=== PATIENT | female | born 1945 | race Caucasian/White ===

== ENCOUNTER 2022-02-13 16:21 | Inpatient (IN) ==
--- NOTE | 2022-02-13 16:59 | Internal Med History&Physical ---
HPI History of Present Illness Patient information: Note initiated : 02/13/22 at 4:52 pm Service Date, if different from initiated Date: [] Patient: Namrata Araiza 76 y/o F admitted on for Hip fracture. Chief Complaint: [Fall with hip fracture] Chief complaint: fall with hip fracture History of present illness: Ms. Araiza is a 76 year old F otherwise healthy lady, presenting with fall with right hip fracture. Patient was ambulating in the car park and she slipped on the ice next to her car and fell landed on her right hip. She denies any loss of consciousness and the fall was accidental. She denies any chest pain or palpitations. She denies any shortness of breath. She denies any head injury. She denies any headaches. She denies any confusion or lethargy after the accident. She was being brought to outside ED where imaging shows a right intertrochanteric hip fracture. They called orthopedic surgeon Dr. Cruz who accepted the case, and would like me to admit the patient for planned surgery tomorrow. Constitutional Constitutional: Absent chills, excessive sweating, fatigue, fever(s) or weakness EENT Eyes: Absent blurry vision, change in vision, loss of vision or other visual disturbances Ears: Absent decreased hearing or tinnitus Nose, mouth and throat: Absent abnormal hearing, dry mouth, headache(s), nasal congestion or sore throat Cardiovascular Cardiovascular: Absent chest pain, chest pain at rest, edema, irregular heart rhythm or palpatations Respiratory Respiratory: Absent cough, dyspnea or wheezing Gastrointestinal Gastrointestinal: Absent abdominal pain, constipation, diarrhea, nausea or vomiting Musculoskeletal Musculoskeletal: Absent back pain, deformity, limited range of motion, muscle cramps, muscle weakness or numbness Additional comments: Right hip pain Integumentary Integumentary: Absent lesions, rash or wounds Neurological Neurological: Absent focal weakness, headache(s) or numbness Psychiatric Psychiatric: Absent anxiety, depression or hallucinations PFSH PFSH All Active Problems (Updated 02/13/22 @ 16:56 by Morris Singh MD) Closed right hip fracture (Acute) EXAM Constitutional General appearance: cooperative and no acute distress Head Head exam: Present atraumatic and normocephalic Eye Eye exam: Present EOMI and PERRL ENT ENT exam: Present mucous membranes moist, normal exam and normal external ear exam Neck Neck exam: Present normal inspection; Absent lymphadenopathy, tenderness or thyromegaly Respiratory Respiratory exam: Absent accessory muscle use, respiratory distress or wheezes Cardiovascular Cardiovascular exam: Present normal rate and rhythm; Absent JVD GI/Abdominal GI/Abdominal exam: Present normal bowel sounds and soft; Absent organomegaly or tenderness Extremities Exam Extremities exam: Present normal capillary refill and tenderness; Absent full ROM or normal inspection Additional comments: Right lateral hip active and passive ROMs limited by pain Neurological Exam Neurological exam: Present alert, CN II-XII intact and oriented X3; Absent motor sensory deficit Psychiatric Psychiatric exam: Present normal affect and normal mood; Absent anxious or depressed Skin Skin exam: Present dry and intact A/P Assessment and plan (1) Closed right hip fracture: Status: Acute Narrative A/P Narrative: Assessment and Plans: 1. Right intertrochanteric femur fracture: Inpatient med surg Consult orthopedic surgeon Dr. Cruz for surgical management Regular diet, NPO after midnight with IV fluid NS@100cc/hr Bedrest Tylenol PRN mild pain Oxycodone PRN moderate pain Dilaudid IV PRN severe pain Robaxin PRN muscle spasm Physical therapy AFTER surgery ct manager for placement planning GI ppx: not currently indicated DVT ppx: SCDs Code status: Full Prognosis: stable Disposition: inpatient med surg; PT Time Spent With Patient Time: Total time spent is greater than 50% in coordination of care (as documented) at patient's floor/unit and/or counseling patient: Total time spent with greater than 50% in coordination of care (as documented) at patient's floor/unit and/or counseling patient:: 50 - 70 minutes
[2022-02-13] MEDS ORDERED: IPRATROPIUM/ALBUTEROL 3 ML AMPUL.NEB NEB PRN (18:34)
[2022-02-13] MEDS ORDERED: METHOCARBAMOL 500 MG TABLET PO PRN (18:34)
[2022-02-13] MEDS ORDERED: HYDROmorphone 0.5 MG/0.5 ML SYRINGE IV PRN (18:34)
[2022-02-13] MEDS ORDERED: traZODone HCL 50 MG TABLET PO PRN (18:34)
[2022-02-13] MEDS ORDERED: oxyCODONE HCL 5 MG TABLET PO PRN (18:34)
[2022-02-13] MEDS: DOCUSATE SODIUM 100 MG CAPSULE PO SCH (19:06)
[2022-02-13] MEDS: 0.9 % SODIUM CHLORIDE 1,000 ML IV SCH (19:06)
[2022-02-13] MEDS: ONDANSETRON 4 MG/2 ML VIAL IV PRN (19:06)
[2022-02-13] MEDS ORDERED: morphine 2 MG/ML VIAL IV PRN (20:32)
[2022-02-13] MEDS: 0.9 % SODIUM CHLORIDE 10 ML SYRINGE IV SCH (20:44)
[2022-02-13] MEDS ORDERED: SENNOSIDES 1 TABLET PO SCH (21:00)
[2022-02-13] MEDS: METHOCARBAMOL 1,000 MG/10 ML VIAL IV PRN (21:02)
--- NOTE | 2022-02-13 22:27 | History and Physical Report ---
DATE OF ADMISSION: 02/13/2022 IDENTIFICATION: Ms. Araiza is a 76-year-old female. CHIEF COMPLAINT: Left hip fracture. HISTORY OF PRESENT ILLNESS: Ms. Ott had a fall on the ice. She had immediate pain, was unable to bear weight. She presented to the hospital in [place] where radiographs demonstrated femoral neck fracture. She is now transferred for further evaluation and management. PAST MEDICAL HISTORY: Fairly unremarkable. PAST SURGICAL HISTORY: Also, noncontributory. MEDICATIONS: See medical record. ALLERGIES: CODEINE PRODUCES NAUSEA, PENICILLINS. PHYSICAL EXAMINATION: GENERAL: She is awake and alert. She responds appropriately. HEAD: Normocephalic, atraumatic. EYES: PERRLA. Conjunctiva clear. ENT: Within normal limits. NECK: Supple without pain on range of motion. HEART: Regular. LUNGS: Clear. MUSCULOSKELETAL: Right hip is carefully positioned and she does get spasming waves of pain. She seemed to be grossly without neurovascular deficit. IMAGING: Radiographs demonstrate a fracture involving the intertrochanteric region of the hip with the lesser trochanter being fractured off. IMPRESSION: Right hip fracture. PLAN: We will proceed with a reduction and internal fixation using an intramedullary hip screw. The procedure risks, complications, limitations were reviewed. She understands these well and wishes to proceed. [email or web address] Job ID: [id number] Doc ID: [id number] Kiran Cruz MD
[2022-02-14] MEDS ORDERED: morphine 10 MG/ML VIAL IV PRN (00:49)
[2022-02-14] MEDS ORDERED: morphine 4 MG/ML VIAL ONE ×2 (00:56→05:29)
[2022-02-14] MEDS: morphine 4 MG/ML VIAL IV PRN ×3 (01:01→11:55)
[2022-02-14] MEDS: ONDANSETRON 4 MG/2 ML VIAL IV PRN ×2 (01:02→11:55)
[2022-02-14] MEDS: METHOCARBAMOL 1,000 MG/10 ML VIAL IV PRN ×2 (03:07→22:52)
[2022-02-14] MEDS: 0.9 % SODIUM CHLORIDE 10 ML SYRINGE IV SCH ×3 (04:48→22:58)
[2022-02-14] MEDS: 0.9 % SODIUM CHLORIDE 1,000 ML IV SCH ×2 (05:17→16:10)
[2022-02-14 06:39] LABS: Basophils # (Auto) 0.02 K/mcL (0.00-0.30); Basophils % (Auto) 0.2 % (0.0-2.0); Eosinophils # (Auto) 0 K/mcL (0.00-0.70); Eosinophils % (Auto) 0 % (0.0-7.0); Hematocrit 34.2 % (34.1-44.9); Hemoglobin 11.5 g/dL (11.2-15.7); Lymphocytes # (Auto) 2.22 K/mcL (1.50-4.80); Lymphocytes % (Auto) 21.4 % (15.5-49.0); Mean Cell Volume 96.6 fL (80.0-100.0); Mean Corpuscular HGB Conc 33.6 g/dL (31.0-36.0); Mean Platelet Volume 10.3 fL (8.8-12.5); Monocytes # (Auto) 0.96 K/mcL (0.10-0.90); Monocytes % (Auto) 9.2 % (1.0-12.0); Neutrophils % (Auto) 68.9 % (38.0-78.0); Platelet Count 192 K/mcL (140-440); RBC 3.54 M/mcL (3.59-5.38); Red Cell Distribution Width 13.6 % (11.5-14.5); WBC 10.4 K/mcL (4.5-11.0)
[2022-02-14 07:02] LABS: ALT/SGPT 9 U/L (<40); AST/SGOT 13 U/L (<32); Albumin 3.2 gm/dL (3.2-5.2); Albumin/Globulin Ratio 1.5 (1.0-2.3); Alkaline Phosphatase 55 U/L (39-117); Bilirubin,Total 0.2 mg/dL (0.1-1.0); Blood Urea Nitrogen 7 mg/dL (8-23); Calcium 7.8 mg/dL (8.6-10.4); Carbon Dioxide 25 mmol/L (22-30); Chloride 105 mmol/L (96-108); Globulin 2.2 gm/dL (2.2-3.7); Glomerular Filtration Rate 87; Glucose 116 mg/dL (70-105)
[2022-02-14] MEDS: DOCUSATE SODIUM 100 MG CAPSULE PO SCH ×2 (09:23→22:58)
--- NOTE | 2022-02-14 09:25 | Internal Med Progress Note ---
SUBJECTIVE Subjective Patient information: Note initiated : 02/14/22 at 9:23 am Service Date, if different from initiated Date: [] Patient: Namrata Araiza 76 y/o F admitted on 02/13/22 for Hip fracture. Chief Complaint: [] Interval history: Ms. Araiza is a 76 year old F otherwise healthy lady, presenting with fall with right hip fracture. Patient was ambulating in the car park and she slipped on the ice next to her car and fell landed on her right hip. She denies any loss of consciousness and the fall was accidental. She denies any chest pain or palpitations. She denies any shortness of breath. She denies any head injury. She denies any headaches. She denies any confusion or lethargy after the accident. She was being brought to outside ED where imaging shows a right intertrochanteric hip fracture. They called orthopedic surgeon Dr. Cruz who accepted the case, and would like me to admit the patient for planned surgery t omorrow. 02/14: Patient is complaining of right lower extremity muscle spasm all the way from hip to toe. She is also commenting of nausea but denies any vomiting. Pending surgery schedule at noon today. Continue narcotics and muscle relaxant as needed for symptoms control meanwhile. Physical therapy evaluation and treatments after the surgery. Constitutional Vitals: Vital Signs Temp Pulse Resp BP Pulse Ox O2 Del Method 36.5 C 89 14 91/65 97 02/14/22 07:09 02/14/22 07:09 02/14/22 07:09 02/14/22 07:09 02/14/22 07:09 02/14/22 07:09 Period Temp Pulse Resp BP Sys/Avalos Pulse Ox O2 Del Method O2 Flow Rate Last 24 Hr 36.5 C-37.0 C 85-89 14-20 91-120/57-65 92-97 Room Air-Room Air Intake and Output 02/13/22 02/14/22 02/14/22 19:59 03:59 11:59 Intake Total 1400 Balance 1400 Weight 49.895 kg Intake & Output: Intake & Output 02/13/22 02/14/22 02/14/22 19:59 03:59 11:59 Intake Total 1400 Balance 1400 Weight 49.895 kg Intake: IV 1000 Sodium Chloride 0.9% 1,000 ml @ 1000 100 mls/hr IV .Q10H [facility] Rx#: [id number] Oral 400 Other: Urine Appearance Clear Uretheral ([facility]) Clear Urine Color Yellow Uretheral ([facility]) Yellow # Voids 350 Head Head exam: Present atraumatic and normal inspection Eye Eye exam: Present normal appearance ENT ENT exam: Present mucous membranes moist, normal exam and normal external ear exam Neck Neck exam: Present normal inspection Respiratory Respiratory exam: Present normal respiratory exam Cardiovascular Cardiovascular exam: Present normal rate and rhythm GI/Abdominal GI/Abdominal exam: Present normal bowel sounds Extremities Exam Extremities exam: Present tenderness; Absent full ROM or normal inspection Additional comments: Right lower extremity active and passive ROMs limited by pain Back Exam Back exam: Present normal inspection Neurological Exam Neurological exam: Present alert and oriented X3 Skin Skin exam: Present intact and warm OBJ DATA Labs CBC & Chem 7: 02/14/22 05:35 02/14/22 05:35 Labs: Abnormal Lab Results 02/14/22 02/14/22 05:35 05:35 RBC 3.54 L Jess[place] # (Auto) 0.96 H Anion Gap 7.0 L BUN 7 L Glucose 116 H Calcium 7.8 L Total Protein 5.4 L Meds: Medications Acetaminophen (Acetaminophen 325 Mg Tablet) 650 mg PO Q6HP PRN; Protocol PRN Reason: Per Pain Protocol/Fever > 101 Albuterol/Ipratropium (Ipratropium/Albuterol 3 Ml Ampul.Neb) 3 ml NEB Q4HRT PRN PRN Reason: Wheezing Docusate Sodium (Docusate Sodium 100 Mg Capsule) 100 mg PO BID [facility] Last Admin: 02/14/22 09:23 Dose: Not Given Sodium Chloride (Sodium Chloride 0.9%) 1,000 mls @ 100 mls/hr IV .Q10H [facility] Last Admin: 02/14/22 05:17 Dose: 100 mls/hr Methocarbamol (Methocarbamol 1,000 Mg/10 Ml Vial) 750 mg IV Q6HP PRN PRN Reason: Muscle Spasm Last Admin: 02/14/22 03:07 Dose: 750 mg Morphine Sulfate (Morphine 2 Mg/Ml Vial) 2 mg IV Q2HP PRN; Protocol PRN Reason: Per Pain Protocol Morphine Sulfate (Morphine 4 Mg/Ml Vial) 4 mg IV Q2HP PRN; Protocol PRN Reason: pain level 6-8 Last Admin: 02/14/22 05:31 Dose: 4 mg Morphine Sulfate (Morphine 10 Mg/Ml Vial) 6 mg IV Q4HP PRN; Protocol PRN Reason: pain level 8-10 Ondansetron HCl (Ondansetron 4 Mg/2 Ml Vial) 4 mg IV Q6HP PRN PRN Reason: Nausea And Vomiting Last Admin: 02/14/22 01:02 Dose: 4 mg Oxycodone HCl (Oxycodone Hcl 5 Mg Tablet) 5 mg PO Q4HP PRN; Protocol PRN Reason: Per Pain Protocol Scopolamine (Scopolamine 1 Patch Patch) 1 patch TOPICAL PREOP PRN PRN Reason: Nausea And Vomiting Stop: 02/14/22 23:59 Senna (Sennosides 1 Tablet) 2 tab PO HS [facility] Last Admin: 02/13/22 19:07 Dose: Not Given Sodium Chloride (0.9 % Sodium Chloride 10 Ml Syringe) 10 ml IV Q8 [facility] Last Admin: 02/14/22 04:48 Dose: Not Given Trazodone HCl (Trazodone Hcl 50 Mg Tablet) 25 mg PO HSP PRN PRN Reason: Insomnia A/P Assessment and plan (1) Closed right hip fracture: Status: Acute Narrative A/P Narrative: Assessment and Plans: 1. Right intertrochanteric femur fracture: Inpatient med surg Consult orthopedic surgeon Dr. Cruz for surgical management Regular diet, NPO after midnight with IV fluid NS@100cc/hr Bedrest Tylenol PRN mild pain Oxycodone PRN moderate pain Dilaudid IV PRN severe pain Robaxin PRN muscle spasm Physical therapy AFTER surgery regional business manager for placement planning GI ppx: not currently indicated DVT ppx: SCDs Code status: Full Prognosis: stable Disposition: inpatient med surg; PT Time Spent With Patient Time: Total time spent is greater than 50% in coordination of care (as documented) at patient's floor/unit and/or counseling patient: Total time spent with greater than 50% in coordination of care (as documented) at patient's floor/unit and/or counseling patient:: 25 - 35 minutes QUALITY VTE Deep Vein Thrombosis/Pulmonary Embolism Present on Admission: No
[2022-02-14] MEDS ORDERED: SCOPOLAMINE 1 PATCH PATCH TOPICAL PRN (12:00)
[2022-02-14] MEDS ORDERED: ceFAZolin 2 GM in DEXTROSE 5% IN WATER 50 ML IV SCH (13:15)
[2022-02-14] MEDS ORDERED: HYDROmorphone 1 MG/ML SYRINGE ONE (13:52)
[2022-02-14] MEDS ORDERED: TRANEXAMIC ACID 1,000 MG/10 ML VIAL ONE (13:52)
[2022-02-14] MEDS ORDERED: MAGNESIUM SULFATE 2 GM/50 ML BAG IV ONE (13:52)
[2022-02-14] MEDS ORDERED: DEXAMETHASONE 10 MG/ML VIAL ONE (13:52)
[2022-02-14] MEDS ORDERED: PROPOFOL 200 MG/20 ML VIAL IV ONE (13:52)
[2022-02-14] MEDS ORDERED: FAMOTIDINE/PF 20 MG/2 ML VIAL IV ONE (13:52)
[2022-02-14] MEDS ORDERED: ONDANSETRON 4 MG/2 ML VIAL ONE (13:52)
[2022-02-14] MEDS ORDERED: fentaNYL 100 MCG/2 ML VIAL IV ONE (13:52)
[2022-02-14] MEDS ORDERED: KETAMINE 50 MG/ML Syringe (ANEST) IV ONE (13:52)
[2022-02-14] MEDS ORDERED: PHENYLephrine 1 MG/10 ML SYRINGE (ANEST) ONE (13:52)
[2022-02-14] MEDS ORDERED: LACTATED RINGERS 250 ML IV PRN (14:16)
[2022-02-14] MEDS ORDERED: ONDANSETRON 4 MG/2 ML VIAL IV PRN (14:16)
[2022-02-14] MEDS ORDERED: PROMETHAZINE 25 MG/ML VIAL IV PRN (14:16)
[2022-02-14] MEDS ORDERED: LABETALOL 5 MG/ML ML IV PRN (14:16)
[2022-02-14] MEDS ORDERED: NALOXONE HCL 0.4 MG/ML VIAL IV PRN (14:16)
[2022-02-14] MEDS ORDERED: IPRATROPIUM/ALBUTEROL 3 ML AMPUL.NEB NEB PRN (14:16)
[2022-02-14] MEDS ORDERED: ACETAMINOPHEN 1,000 MG/100 ML BAG IV ONE (14:16)
[2022-02-14] MEDS ORDERED: METOPROLOL TARTRATE 5 MG/5 ML VIAL IV PRN (14:16)
[2022-02-14] MEDS ORDERED: METHOCARBAMOL 1,000 MG/10 ML VIAL IV PRN (14:16)
[2022-02-14] MEDS ORDERED: LACTATED RINGERS 1,000 ML IV SCH (14:30)
--- NOTE | 2022-02-14 15:31 | XRay Report ---
INDICATION: right hip nailing TECHNIQUE: Intraoperative fluoroscopy and spot films utilized by Dr. Cruz. 0.9 minutes fluoroscopy and 5.34 mGy exposure used. Open reduction and internal fixation of a right intertrochanteric hip fracture performed. IMPRESSION: Intraoperative fluoroscopy and spot films Interpreted and Authenticated by: Jose Olguin 02/14/22
--- NOTE | 2022-02-14 15:38 | Brief Operative Note ---
Brief Operative Note Date of procedure: 02/14/22 Pre-op diagnosis: hip fracture right Post-op diagnosis: same Procedure: orif Grafts/Implants: Yes Anesthesia: GETA Findings: stable fixation Complications: none Surgeon: Kiran Cruz [employer] Attendant: César Alexis Estimated blood loss (cc): 200 Specimens Removed/Pathology: none sent Disposition: PACU
[2022-02-14] MEDS ORDERED: MAGNESIUM HYDROXIDE 30 ML ORAL.SUSP PO PRN (15:39)
[2022-02-14] MEDS ORDERED: POLYETHYLENE GLYCOL 3350 17 GM PACKET PO PRN (15:39)
[2022-02-14] MEDS ORDERED: BISACODYL 10 MG SUPP.RECT PR PRN (15:39)
[2022-02-14] MEDS ORDERED: HYDROCODONE/APAP 7.5/325MG TABLET PO PRN (15:39)
[2022-02-14] MEDS ORDERED: FLEETS ADULT ENEMA PR PRN (15:39)
[2022-02-14] MEDS: fentaNYL 100 MCG/2 ML VIAL IV PRN ×2 (16:04→16:09)
[2022-02-14] MEDS ORDERED: morphine 4 MG/ML VIAL IV ONE (16:22)
[2022-02-14] MEDS ORDERED: morphine 2 MG/ML VIAL ONE (16:32)
[2022-02-14] MEDS ORDERED: ASPIRIN 325 MG ENTERIC COATED TABLET PO SCH (21:00)
[2022-02-14] MEDS: ceFAZolin 1 GM VIAL IV SCH (22:52)
[2022-02-14] MEDS: ACETAMINOPHEN 325 MG TABLET PO PRN (22:52)
[2022-02-14] MEDS: SENNOSIDES 1 TABLET PO SCH (22:58)
[2022-02-15] MEDS ORDERED: IBUPROFEN 600 MG TABLET PO ONE (00:02)
[2022-02-15] MEDS: IBUPROFEN 600 MG TABLET PO PRN ×4 (00:07→21:56)
[2022-02-15] MEDS: ceFAZolin 1 GM VIAL IV SCH (05:41)
[2022-02-15] MEDS: 0.9 % SODIUM CHLORIDE 10 ML SYRINGE IV SCH ×3 (05:41→20:16)
[2022-02-15] MEDS: METHOCARBAMOL 1,000 MG/10 ML VIAL IV PRN (05:41)
[2022-02-15] MEDS: morphine 4 MG/ML VIAL IV PRN (05:54)
[2022-02-15 07:23] LABS: Hematocrit 26.7 % (34.1-44.9)
[2022-02-15 07:31] LABS: Basophils # (Auto) 0.01 K/mcL (0.00-0.30); Basophils % (Auto) 0.1 % (0.0-2.0); Eosinophils # (Auto) 0 K/mcL (0.00-0.70); Eosinophils % (Auto) 0 % (0.0-7.0); Hematocrit 27.1 % (34.1-44.9); Hemoglobin 8.8 g/dL (11.2-15.7); Lymphocytes # (Auto) 2.15 K/mcL (1.50-4.80); Lymphocytes % (Auto) 21.4 % (15.5-49.0); Mean Cell Volume 94.8 fL (80.0-100.0); Mean Corpuscular HGB Conc 32.5 g/dL (31.0-36.0); Mean Platelet Volume 10.7 fL (8.8-12.5); Monocytes # (Auto) 1.09 K/mcL (0.10-0.90); Monocytes % (Auto) 10.9 % (1.0-12.0); Neutrophils % (Auto) 67.1 % (38.0-78.0); Platelet Count 163 K/mcL (140-440); RBC 2.86 M/mcL (3.59-5.38); Red Cell Distribution Width 13.5 % (11.5-14.5)
[2022-02-15 07:53] LABS: ALT/SGPT 7 U/L (<40); AST/SGOT 15 U/L (<32); Albumin 2.7 gm/dL (3.2-5.2); Albumin/Globulin Ratio 1.4 (1.0-2.3); Alkaline Phosphatase 50 U/L (39-117); Bilirubin,Total 0.2 mg/dL (0.1-1.0); Blood Urea Nitrogen 9 mg/dL (8-23); Calcium 7.5 mg/dL (8.6-10.4); Carbon Dioxide 27 mmol/L (22-30); Chloride 101 mmol/L (96-108); Glomerular Filtration Rate 87; Glucose 102 mg/dL (70-105)
[2022-02-15] MEDS: DOCUSATE SODIUM 100 MG CAPSULE PO SCH ×2 (08:45→21:47)
[2022-02-15] MEDS: ACETAMINOPHEN 325 MG TABLET PO PRN ×2 (08:46→14:47)
[2022-02-15] MEDS: ASPIRIN 81 MG TAB.CHEW PO SCH ×2 (09:44→21:47)
--- NOTE | 2022-02-15 10:16 | General Surgery Progress Note ---
SUBJECTIVE Subjective Patient information: Note initiated : 02/15/22 at 10:15 am Service Date, if different from initiated Date: [] Patient: Namrata Araiza 76 y/o F admitted on 02/13/22 for Hip fracture. Chief Complaint: [] Principal diagnosis: hip fracture Constitutional Vitals: Vital Signs Temp Pulse Resp BP Pulse Ox O2 Del Method O2 Flow Rate 98.1 F 81 18 98/51 96 1 02/15/22 06:00 02/15/22 06:00 02/15/22 06:00 02/15/22 06:00 02/15/22 06:00 02/15/22 06:00 02/15/22 00:00 Period Temp Pulse Resp BP Sys/Avalos Pulse Ox O2 Del Method O2 Flow Rate Last 24 Hr 97 F-99.1 F 64-98 10-27 98-181/49-97 87-100 Nasal Cannula- Simple Mask 1-6 Intake and Output 02/14/22 02/15/22 02/15/22 19:59 03:59 11:59 Intake Total 3550 1200 Output Total 700 1000 550 Balance 2850 -1000 650 Weight 110 lb 3.2 oz Intake & Output: Intake & Output 02/14/22 02/15/22 02/15/22 19:59 03:59 11:59 Intake Total 3550 1200 Output Total 700 1000 550 Balance 2850 -1000 650 Weight 110 lb 3.2 oz Intake: IV 1150 Sodium Chloride 0.9% 1,000 ml @ 1000 100 mls/hr IV .Q10H [facility] Rx#: [id number] Ancef 2 gm In Dextrose 5% in 50 Water 50 ml @ 100 mls/hr IV PREOP [facility] Rx#:[id number] Oral 1200 IV - Manual Only 2400 Output: Urine Catheter Amount 600 1000 550 Estimated Blood Loss 100 Other: Urine Appearance Clear Clear Clear Uretheral ([facility]) Clear Urine Color Yellow Yellow Yellow Uretheral ([facility]) Pale # Bowel Movements 0 Additional findings Additional findings: neuro intact A/P Assessment and plan (1) Closed right hip fracture: Status: Acute Time Spent With Patient Time: Total time spent is greater than 50% in coordination of care (as documented) at patient's floor/unit and/or counseling patient:
--- NOTE | 2022-02-15 10:17 | General Surgery Progress Note ---
SUBJECTIVE Subjective Patient information: Note initiated : 02/15/22 at 10:16 am Service Date, if different from initiated Date: [] Patient: Namrata Araiza 76 y/o F admitted on 02/13/22 for Hip fracture. Chief Complaint: [] Principal diagnosis: hip fracture Constitutional Vitals: Vital Signs Temp Pulse Resp BP Pulse Ox O2 Del Method O2 Flow Rate 98.1 F 81 18 98/51 96 1 02/15/22 06:00 02/15/22 06:00 02/15/22 06:00 02/15/22 06:00 02/15/22 06:00 02/15/22 06:00 02/15/22 00:00 Period Temp Pulse Resp BP Sys/Avalos Pulse Ox O2 Del Method O2 Flow Rate Last 24 Hr 97 F-99.1 F 64-98 10-27 98-181/49-97 87-100 Nasal Cannula- Simple Mask 1-6 Intake and Output 02/14/22 02/15/22 02/15/22 19:59 03:59 11:59 Intake Total 3550 1200 Output Total 700 1000 550 Balance 2850 -1000 650 Weight 110 lb 3.2 oz Intake & Output: Intake & Output 02/14/22 02/15/22 02/15/22 19:59 03:59 11:59 Intake Total 3550 1200 Output Total 700 1000 550 Balance 2850 -1000 650 Weight 110 lb 3.2 oz Intake: IV 1150 Sodium Chloride 0.9% 1,000 ml @ 1000 100 mls/hr IV .Q10H [facility] Rx#: [id number] Ancef 2 gm In Dextrose 5% in 50 Water 50 ml @ 100 mls/hr IV PREOP [facility] Rx#:[id number] Oral 1200 IV - Manual Only 2400 Output: Urine Catheter Amount 600 1000 550 Estimated Blood Loss 100 Other: Urine Appearance Clear Clear Clear Uretheral ([facility]) Clear Urine Color Yellow Yellow Yellow Uretheral ([facility]) Pale # Bowel Movements 0 A/P Narrative A/P Narrative: post hip orif Plan of Treatment: dc plannng Time Spent With Patient Time: Total time spent is greater than 50% in coordination of care (as documented) at patient's floor/unit and/or counseling patient:
--- NOTE | 2022-02-15 10:53 | Internal Med Progress Note ---
SUBJECTIVE Subjective Patient information: Note initiated : 02/15/22 at 10:47 am Service Date, if different from initiated Date: [] Patient: Namrata Araiza 76 y/o F admitted on 02/13/22 for Hip fracture. Chief Complaint: [] Principal diagnosis: hip fracture Interval history: Ms. Araiza is a 76 year old F otherwise healthy lady, presenting with fall with right hip fracture. Patient was ambulating in the car park and she slipped on the ice next to her car and fell landed on her right hip. She denies any loss of consciousness and the fall was accidental. She denies any chest pain or palpitations. She denies any shortness of breath. She denies any head injury. She denies any headaches. She denies any confusion or lethargy after the accident. She was being brought to outside ED where imaging shows a right intertrochanteric hip fracture. They called orthopedic surgeon Dr. Cruz who accepted the case, and would like me to admit the patient for planned surgery tomorrow. 02/14: Patient is complaining of right lower extremity muscle spasm all the way from hip to toe. She is also commenting of nausea but denies any vomiting. Pending surgery schedule at noon today. Continue narcotics and muscle relaxant as needed for symptoms control meanwhile. Physical therapy evaluation and treatments after the surgery. 02/15: s/p ORIF by Dr. Cruz on 02/14/22. Patient tolerated the procedure well. Hem oglobin 11.5-->8.8. Patient is complaining of muscle spasm of the right hip. Been passing gas but has not had a bowel movement yet. She did have physical therapy session with earlier this morning. Continue narcotics and muscle relaxant as needed for symptoms control. Continue physical therapy session. Continue Aspirin 81mg PO BID as DVT ppx. Rest of post- operative care as per Dr. Cruz. Constitutional Vitals: Vital Signs Temp Pulse Resp BP Pulse Ox O2 Del Method O2 Flow Rate 36.8 C 80 18 110/70 96 1 02/15/22 08:00 02/15/22 08:00 02/15/22 08:00 02/15/22 08:00 02/15/22 08:00 02/15/22 08:00 02/15/22 00:00 Period Temp Pulse Resp BP Sys/Avalos Pulse Ox O2 Del Method O2 Flow Rate Last 24 Hr 36.1 C-37.3 C 64-98 8- 98-181/49-97 87-100 Nasal Cannula- Simple Mask 1-6 Intake and Output 02/14/22 02/15/22 02/15/22 19:59 03:59 11:59 Intake Total 3550 1200 Output Total 700 1000 550 Balance 2850 -1000 650 Weight 49.986 kg Intake & Output: Intake & Output 02/14/22 02/15/22 02/15/22 19:59 03:59 11:59 Intake Total 3550 1200 Output Total 700 1000 550 Balance 2850 -1000 650 Weight 49.986 kg Intake: IV 1150 Sodium Chloride 0.9% 1,000 ml @ 1000 100 mls/hr IV .Q10H [facility] Rx#: [id number] Ancef 2 gm In Dextrose 5% in 50 Water 50 ml @ 100 mls/hr IV PREOP [facility] Rx#:[id number] Oral 1200 IV - Manual Only 2400 Output: Urine Catheter Amount 600 1000 550 Estimated Blood Loss 100 Other: Urine Appearance Clear Clear Clear Uretheral ([facility]) Clear Urine Color Yellow Yellow Yellow Uretheral ([facility]) Pale # Bowel Movements 0 General appearance: average body habitus, cooperative and no acute distress Head Head exam: Present atraumatic and normal inspection Eye Eye exam: Present normal appearance ENT ENT exam: Present mucous membranes moist, normal exam and normal external ear exam Neck Neck exam: Present normal inspection Respiratory Respiratory exam: Present normal respiratory exam Cardiovascular Cardiovascular exam: Present normal rate and rhythm GI/Abdominal GI/Abdominal exam: Present normal bowel sounds Extremities Exam Extremities exam: Present tenderness; Absent full ROM or normal inspection Additional comments: Right lateral hip covered by surgical dressing Back Exam Back exam: Present normal inspection Neurological Exam Neurological exam: Present alert and oriented X3 Skin Skin exam: Present intact and warm OBJ DATA Labs CBC & Chem 7: 02/15/22 05:30 02/15/22 05:30 Labs: Abnormal Lab Results 02/15/22 02/15/22 02/15/22 05:30 05:30 05:29 RBC 2.86 L Hgb 8.8 L 9.0 L Hct 27.1 L 26.7 L Hanson # (Auto) 1.09 H Anion Gap 5.0 L BUN Glucose Calcium 7.5 L Total Protein 4.7 L Albumin 2.7 L Globulin 2.0 L 02/14/22 02/14/22 05:35 05:35 RBC 3.54 L Hgb Hct Hanson # (Auto) 0.96 H Anion Gap 7.0 L BUN 7 L Glucose 116 H Calcium 7.8 L Total Protein 5.4 L Albumin Globulin Meds: Medications Acetaminophen (Acetaminophen 325 Mg Tablet) 650 mg PO Q6HP PRN; Protocol PRN Reason: Per Pain Protocol/Fever > 101 Last Admin: 02/15/22 08:46 Dose: 650 mg Hydrocodone Bitart/Acetaminophen (Hydrocodone/Apap 7.5/325mg Tablet) 0 tab PO Q4HP PRN; Protocol PRN Reason: Per Pain Protocol Albuterol/Ipratropium (Ipratropium/Albuterol 3 Ml Ampul.Neb) 3 ml NEB Q4HRT PRN PRN Reason: Wheezing Aspirin (Aspirin 81 Mg Tab.Chew) 81 mg PO BID [facility] Last Admin: 02/15/22 09:44 Dose: 81 mg Bisacodyl (Bisacodyl 10 Mg Supp.Rect) 10 mg MO Q2-3DAYS PRN PRN Reason: Constipation Cyclobenzaprine HCl (Cyclobenzaprine 10 Mg Tablet) 10 mg PO TIDP PRN PRN Reason: Muscle Spasm Docusate Sodium (Docusate Sodium 100 Mg Capsule) 100 mg PO BID [facility] Last Admin: 02/15/22 08:45 Dose: 100 mg Ibuprofen (Ibuprofen 600 Mg Tablet) 600 mg PO QIDP PRN; Protocol PRN Reason: PAIN/FEVER > 101 Last Admin: 02/15/22 08:45 Dose: 600 mg Magnesium Hydroxide (Magnesium Hydroxide 30 Ml Oral.Susp) 30 ml PO BIDP PRN PRN Reason: Constipation Morphine Sulfate (Morphine 2 Mg/Ml Vial) 2 mg IV Q2HP PRN; Protocol PRN Reason: Per Pain Protocol Morphine Sulfate (Morphine 4 Mg/Ml Vial) 4 mg IV Q2HP PRN; Protocol PRN Reason: pain level 6-8 Last Admin: 02/15/22 05:54 Dose: 4 mg Morphine Sulfate (Morphine 10 Mg/Ml Vial) 6 mg IV Q4HP PRN; Protocol PRN Reason: pain level 8-10 Ondansetron HCl (Ondansetron 4 Mg/2 Ml Vial) 4 mg IV Q6HP PRN PRN Reason: Nausea And Vomiting Last Admin: 02/14/22 11:55 Dose: 4 mg Oxycodone HCl (Oxycodone Hcl 5 Mg Tablet) 5 mg PO Q4HP PRN; Protocol PRN Reason: Per Pain Protocol Polyethylene Glycol (Polyethylene Glycol 3350 17 Gm Packet) 17 gm PO DAILYP PRN PRN Reason: Constipation Senna (Sennosides 1 Tablet) 2 tab PO HS [facility] Last Admin: 02/14/22 22:58 Dose: Not Given Sodium Biphosphate/Sodium Phosphate (Fleets Adult Enema) 1 dose MO Q3-4DAYS PRN PRN Reason: Constipation Sodium Chloride (0.9 % Sodium Chloride 10 Ml Syringe) 10 ml IV Q8 [facility] Last Admin: 02/15/22 05:41 Dose: 10 ml Trazodone HCl (Trazodone Hcl 50 Mg Tablet) 25 mg PO HSP PRN PRN Reason: Insomnia A/P Assessment and plan (1) Closed right hip fracture: Status: Acute (2) Postoperative anemia: Status: Acute Narrative A/P Narrative: Assessment and Plans: 1. Right intertrochanteric femur fracture: Inpatient med surg s/p ORIF by Dr. Cruz on 02/14/22, patient tolerated the procedure well Tylenol PRN mild pain Oxycodone PRN moderate pain Dilaudid IV PRN severe pain Flexeril PRN muscle spasm Aspirin 81mg PO BID as DVT ppx Physical therapy evaluation and treatment health safety and environment manager for placement planning 2. Post surgical anemia: cbc w/ auto diff in the morning to trend H/H, transfuse if active bleeding, Hemoglobin<7.0, or if patient becomes symptomatic GI ppx: not currently indicated DVT ppx: SCDs; Aspirin 81mg PO BID Code status: Full Prognosis: stable Disposition: inpatient med surg; PT Plan of Treatment: dc plannng Time Spent With Patient Time: Total time spent is greater than 50% in coordination of care (as documented) at patient's floor/unit and/or counseling patient: Total time spent with greater than 50% in coordination of care (as documented) at patient's floor/unit and/or counseling patient:: 25 - 35 minutes QUALITY VTE Deep Vein Thrombosis/Pulmonary Embolism Present on Admission: No
[2022-02-15] MEDS: CYCLOBENZAPRINE 10 MG TABLET PO PRN ×2 (11:55→21:47)
[2022-02-15] MEDS: SENNOSIDES 1 TABLET PO SCH (21:48)
[2022-02-16] MEDS: ACETAMINOPHEN 325 MG TABLET PO PRN (03:18)
[2022-02-16] MEDS: 0.9 % SODIUM CHLORIDE 10 ML SYRINGE IV SCH (05:46)
[2022-02-16] MEDS: CYCLOBENZAPRINE 10 MG TABLET PO PRN (07:11)
[2022-02-16] MEDS: IBUPROFEN 600 MG TABLET PO PRN (07:11)
[2022-02-16 07:12] LABS: Basophils # (Auto) 0.03 K/mcL (0.00-0.30); Basophils % (Auto) 0.3 % (0.0-2.0); Eosinophils # (Auto) 0.03 K/mcL (0.00-0.70); Eosinophils % (Auto) 0.3 % (0.0-7.0); Hematocrit 26.2 % (34.1-44.9); Hemoglobin 8.7 g/dL (11.2-15.7); Lymphocytes # (Auto) 2.64 K/mcL (1.50-4.80); Lymphocytes % (Auto) 29.3 % (15.5-49.0); Mean Corpuscular HGB Conc 33.2 g/dL (31.0-36.0); Mean Platelet Volume 10.8 fL (8.8-12.5); Monocytes # (Auto) 0.94 K/mcL (0.10-0.90); Monocytes % (Auto) 10.4 % (1.0-12.0); Neutrophils % (Auto) 59.4 % (38.0-78.0); Platelet Count 161 K/mcL (140-440); Red Cell Distribution Width 13.7 % (11.5-14.5)
[2022-02-16 07:13] LABS: Hematocrit 26.2 % (34.1-44.9); Hemoglobin 8.5 g/dL (11.2-15.7)
[2022-02-16 07:47] LABS: ALT/SGPT 7 U/L (<40); AST/SGOT 19 U/L (<32); Albumin 2.8 gm/dL (3.2-5.2); Albumin/Globulin Ratio 1.6 (1.0-2.3); Alkaline Phosphatase 47 U/L (39-117); Bilirubin,Total 0.3 mg/dL (0.1-1.0); Blood Urea Nitrogen 10 mg/dL (8-23); Calcium 7.5 mg/dL (8.6-10.4); Carbon Dioxide 30 mmol/L (22-30); Chloride 104 mmol/L (96-108); Globulin 1.8 gm/dL (2.2-3.7); Glomerular Filtration Rate 87; Glucose 87 mg/dL (70-105)
--- NOTE | 2022-02-16 07:59 | Operative Note ---
DATE OF OPERATION: 02/14/2022 DATE OF PROCEDURE: 02/14/2022 PREOPERATIVE DIAGNOSIS: Right intertrochanteric hip fracture. POSTOPERATIVE DIAGNOSIS: Right intertrochanteric hip fracture. OPERATION PROPOSED: Right hip open reduction and internal fixation of right hip using a Synthes spiral blade. OPERATION PERFORMED: Same. SURGEON: Kiran Cruz M.D. SPOOLING SUPERVISOR: César Alexis PA-C. The expertise and technical skill of this provider were required throughout the case. The PA assisted with preoperative coordination, intraoperative retraction, wound closure, and dressing and splint application, as well as postoperative documentation and care coordination. INDICATIONS: This is an elderly lady who has a displaced intertrochanteric hip fracture and would like to proceed with an ORIF. DESCRIPTION OF PROCEDURE: Informed consent was obtained. The patient was taken to the operating room and provided with appropriate anesthetic and prophylactic antibiotics. She was carefully positioned. A best possible reduction was performed on the fracture table. Hip was prepped sterilely. A standard lateral approach was performed to the tip of the trochanter. I entered using a 3.2 mm guidewire, an opening reamer was used, a long guidewire was applied. I then sequentially reamed to a size 12.5. An 11 x 320 intramedullary dl was advanced. I then passed a 3.2 mm guidewire retrograde across the fracture, low in the calcar and centered on the anterior, posterior view. An anti-rotation wire was applied and then the reamer was passed. A spiral blade was impacted. This spiral blade was locked to the intramedullary device. A distal interlocking screw was applied. The wounds were irrigated thoroughly and closed with a 0 Vicryl in interrupted fashion, 2-0 Vicryl inverted deep dermal and running subcuticular and ashish. Procedure was tolerated well. No complications. ESTIMATED BLOOD LOSS: 200 mL. GDD:delmer Job ID: [id number] Doc ID: [id number] Kiran Cruz MD
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
[2022-02-16] MEDS: DOCUSATE SODIUM 100 MG CAPSULE PO SCH (09:07)
[2022-02-16] MEDS: ASPIRIN 81 MG TAB.CHEW PO SCH (09:07)
--- NOTE | 2022-02-18 18:24 | EKG ---
[facility] Test Date: 2022-02-14 Pat Name: Namrata Araiza Department: [facility] Room: 108 Gender: Female Rate Engineer: : 1945 Requested By: Nelson Mock Order Number: [id number] Reading MD: Villa Denson Measurements Intervals [place] Rate: 94 P: 93 ID: [id number] QRS: 63 QRSD: 75 T: 72 QT: 355 QTc: 445 Interpretive Statements Sinus rhythm Low voltage, extremity leads Minimal ST depression, anterolateral leads Electronically Signed On 02-18-2022 18:24:20 PST by Villa Denson /[id number]
== END 2022-02-16 12:15 | disposition home health service (06) | DRG 482 ==
LOC: MEDSUR 18:16
PROVIDERS: ADMIT Internal Medicine; ATTEND Internal Medicine